=== PATIENT | female | born 1960 | race Caucasian/White ===

== ENCOUNTER 2017-04-16 19:52 | Emergency (ER) | payer MEDICARE ==
[2017-04-16 20:54] LABS: APPEARANCE,URINE Turbid; BILIRUBIN,URINE NEGATIVE (NEGATIVE); COLOR,URINE Yellow; GLUCOSE, URINE (UA) NEGATIVE (NEGATIVE); KETONES,URINE NEGATIVE (NEGATIVE); LEUKOCYTE ESTERASE ,URINE 1+ (NEGATIVE); NITRATE,URINE NEGATIVE (NEGATIVE); OCCULT BLOOD,URINE 3+ (NEG-TRACE); PH,URINE 5.5; UROBILINOGEN,URINE 0.2 (0.2-1.0 EU)
[2017-04-16 21:06] LABS: RBC,URINE 20-25 (0-3AV/HPF); WBC,URINE TNTC (0-5AV/HPF)
[2017-04-16] MEDS ORDERED: CEFTRIAXONE 1 GM PDS 1 GM in SODIUM CHLORIDE 0.9% 50 ML 50 ML IV ONE (21:33)
[2017-04-16] MEDS ORDERED: SODIUM CHLORIDE 0.9% 1000ML 1,000 ML IV ONE (21:33)
[2017-04-16] MEDS ORDERED: ONDANSETRON HCL 4 MG/2 ML SOL IV ONE (21:34)
[2017-04-16] MEDS ORDERED: PHENAZOPYRIDINE HYDROCHLORID 100 MG TAB PO ONE (21:35)
[2017-04-16] MEDS ORDERED: TRAMADOL HYDROCHLORIDE 50 MG TAB PO ONE (21:35)
[2017-04-16] MEDS ORDERED: CEFTRIAXONE 1 GM PDS ONE (22:10)
[2017-04-16] MEDS ORDERED: ONDANSETRON HCL 4 MG/2 ML SOL ONE (22:10)
[2017-04-16] MEDS ORDERED: TRAMADOL HYDROCHLORIDE 50 MG TAB ONE (22:10)
[2017-04-17 00:08] VITALS: BP 132/85; PULSE 101; RESP 20; TEMP 98.8; O2SAT 99
== END 2017-04-17 01:50 | disposition home or self-care (01) | DRG 690 ==
LOC: ED 19:52
DX: N30.01 Acute cystitis with hematuria (principal)
CPT/HCPCS: 81001; 87077; 87088; 87186; 96365; 96366; 96374; 99284; 99285; J0696; J2405; A9270-GY